=== PATIENT | male | born 1960 | race Caucasian/White ===

== ENCOUNTER 2020-03-18 22:31 | Emergency (ER) | payer SELFPAY ==
[~2020-03-18] VITALS: Ht 188 cm; Wt 88.0 kg
--- OUTSIDE RECORDS SUMMARY | 2020-03-18 22:34 | XMS ---
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 There are no care providers on record at this time. Tony has no Care Guidelines for this patient. Rishi VISIT COUNT (12 MO.) 1 DIOGENES [place] TOTAL 1 NOTE: Visits indicate total known visits. ED/UCC VISIT TRACKING (12 MO.) 03/18/2020 22:31 DIOGENES Miguel [place] TYPE: Emergency COMPLAINT: - LT HIP PAIN INPATIENT VISIT TRACKING (12 MO.) No inpatient visits to display in this time frame [email or web address]
[2020-03-18] MEDS ORDERED: CLONAZEPAM0.5 MG PO (22:49)
[2020-03-18] MEDS ORDERED: HYDROCODON-ACE1 EA10 PO (22:49)
[2020-03-18] MEDS ORDERED: PANTOPRAZOLE SO40 MG PO (22:49)
[2020-03-18] MEDS ORDERED: AMLODIPINE-BEN1 EAC3 PO (22:49)
[2020-03-18] MEDS ORDERED: ZOLPIDEM TARTRA10 MG PO (22:49)
== END 2020-03-18 23:00 | disposition left against medical advice (07) ==
LOC: ED 22:31
DX: Z53.21 Procedure and treatment not carried out due to patient leaving prior to being seen by health care provider (principal)

== ENCOUNTER 2022-01-10 09:14 | Emergency (ER) | payer OTHER ==
[~2022-01-10] VITALS: Ht 188 cm; Wt 88.0 kg
[~2022-01-10 09:14] MED LIST: AMLODIPINE-BEN1 EAC3 PO; CLONAZEPAM0.5 MG PO; HYDROCODON-ACE1 EA10 PO; PANTOPRAZOLE SO40 MG PO; ZOLPIDEM TARTRA10 MG PO
[2022-01-10] MEDS ORDERED: CEPHALEXIN500 M1 PO (11:10)
== END 2022-01-10 12:08 | disposition home or self-care (01) ==
LOC: ED 09:14
DX: S61.411A Laceration without foreign body of right hand, initial encounter (principal); J45.909 Unspecified asthma, uncomplicated; I10 Essential (primary) hypertension; K21.9 Gastro-esophageal reflux disease without esophagitis; G47.00 Insomnia, unspecified; Z88.5 Allergy status to narcotic agent; Z79.899 Other long term (current) drug therapy; W26.8XXA Contact with other sharp object(s), not elsewhere classified, initial encounter
CPT/HCPCS: 73130; 99283-25; A9270

== ENCOUNTER 2024-05-20 07:00 | Day surgery (SDC) | payer OTHER ==
[2024-05-18 08:36] VITALS: BP 124/79
[~2024-05-20] VITALS: Ht 188 cm; Wt 93.2 kg
[~2024-05-20 07:00] MED LIST changes: +CEFAZOLIN SODIUM 2 GM/20 ML SYR IV SCH; +CEPHALEXIN500 M1 PO; +IBLOOD GLUCOSE TEST STRIP 1 EA TEST VI PRN; +LACTATED RINGER'S 1,000 ML IV SCH; +LIDOCAINE HCL 1% 5 ML SDV INJ ONE; +MIDAZOLAM HCL 5 MG/5 ML VIAL IV PRN; +fentaNYL citrate 100 MCG/2 ML VIAL IV PRN
[2024-05-20 07:13] VITALS: BP 145/83
--- NOTE | 2024-05-20 07:50 | NUR ---
PRE-OP VISIT. PT APPEARED SLIGHTLY ANXIOUS, STATED DOES NOT LIKE HOSPITALS DUE TO PAST EXPERIENCES. HOUSEHOLD CHORES PROVIDED SUPPORTIVE PRESENCE, ACCESS SERVICES LIBRARIAN EDUCATION, HOSPITALITY, PRAYER. PT EXPRESSED APPRECIATION, APPEARED TO MORE RELAXED.
[2024-05-20] MEDS ORDERED: IBLOOD GLUCOSE TEST STRIP 1 EA TEST VI PRN (08:00)
[2024-05-20] MEDS ORDERED: PROCHLORPERAZINE EDISYLATE 10 MG/2 ML VIAL IV PRN (08:00)
[2024-05-20] MEDS ORDERED: fentaNYL citrate 50 MCG/ML SDV IV PRN (08:00)
[2024-05-20] MEDS ORDERED: ondansetron HCL 4 MG/2 ML VIAL IV PRN (08:00)
[2024-05-20] MEDS ORDERED: droPERidol 5 MG/2 ML VIAL IV PRN (08:00)
[2024-05-20] MEDS ORDERED: METOCLOPRAMIDE HCL 10 MG/2 ML SDV IV PRN (08:00)
[2024-05-20] MEDS ORDERED: MEPERIDINE HCL 25 MG/1 ML VIAL IV PRN (08:00)
[2024-05-20] MEDS ORDERED: NALOXONE HCL 0.4 MG SYR IV PRN (08:00)
[2024-05-20] MEDS ORDERED: LIDOCAINE HCL 2% 5 ML SDV ONE (08:19)
[2024-05-20] MEDS ORDERED: propofoL 200 MG/20 ML VIAL ONE ×3 (08:19→08:51)
--- NOTE | 2024-05-20 09:05 | NUR ---
05/20/24 0905 Snehal Wiggins 0900- PT ARRIVES TO PACU NONAROUSABLE TO STIMULI. RESP EVEN AND UNLABORED. OXYGEN SAT MID TO HIGH 90'S ON 2L VIA CO2 NC.
[2024-05-20 09:33] VITALS: BP 135/92
--- NOTE | 2024-05-20 11:00 | OR ---
[facility] [address] [place], [place] [address] Signed DATE OF OPERATION: 05/20/2024 SURGEON: Arabella Lincoln MD PREOPERATIVE DIAGNOSIS: Screening. POSTOPERATIVE DIAGNOSES: 1. 3 mm polyp at 7 cm in rectum. 2. 4 mm polyp at 15 cm in rectum. 3. 4 mm polyp in proximal right colon. 4. 5 mm polyp versus lymphoid aggregate at 85 cm in left colon. 5. Small single column internal hemorrhoid. PROCEDURE: Colonoscopy with hot biopsy. ESTIMATED BLOOD LOSS: None. INDICATIONS: Jovanna is a 64-year-old gentleman, asked to see me for followup colonoscopy. I helped him with a screening colonoscopy in 2011 at the age of 52. This was unremarkable. He always requires monitored anesthesia care because of his severe panic attacks and PTSD requiring daily clonazepam. He also has been using some hydrocodone as well. That worked out very well today. He told me he has no lower GI complaints. There is no family history of colon cancer or polyps. 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 He understands colonoscopy well. There is risk including, but not limited to gas bloating, crampy abdominal pain, bleeding, perforation requiring surgery, and missed diagnosis. He understands an adult person has to take him home afterwards. He had expressed understanding and wished to proceed. DESCRIPTION OF PROCEDURE: Jovanna was taken into our endoscopy suite and placed in the left lateral decubitus position. He was given monitored anesthesia care with propofol infusion per our nurse insurance loss adjuster. A digital rectal exam was performed and this was unremarkable. He had good sphincter tone. No external hemorrhoids. No masses. The adult colonoscope was introduced and advanced all around into the cecum under direct visualization of the camera. He needed just a little extra propofol and some abdominal compression to get the camera directly into the cecum itself. We could easily see the appendiceal orifice Electronically Signed By: ARABELLA LINCOLN MD 08/1099 PATIENT NAME: JOVANNA GREY OPERATIVE REPORT DATE OF : 64 REPORT #: [id number] PHYSICIAN: ARABELLA LINCOLN MD PCP: ERICKA FAIR PA-C REPORT IS CONFIDENTIAL AND NOT TO BE RELEASED WITHOUT AUTHORIZATION [facility] [address] [place] [address] Signed and the ileocecal valve. The scope was then slowly withdrawn. We took pictures throughout for photodocumentation. The above-mentioned polyps were easily removed with the help of hot biopsy forceps. The scope was then retroflexed in the rectum and he does have just a single internal small hemorrhoid column. After this, the gas was suctioned out and the colonoscope removed. Jovanna tolerated the procedure quite well. RECOMMENDATIONS: I will see Jovanna back in my office in 7 to 14 days to review his results. MD ERNESTO Beebe/MODE /[id number] cc: MONICA Negron MD Copies: FAIRERICKA PA-C, ANDREW L MD ~ Electronically Signed By: ARABELLA LINCOLN MD 05/20/24 1100 PATIENT NAME: JOVANNA GREY OPERATIVE REPORT DATE OF : 64 REPORT #: [id number] PHYSICIAN: ARABELLA LINCOLN MD PCP: ERICKA FAIR PA-C REPORT IS CONFIDENTIAL AND NOT TO BE RELEASED WITHOUT AUTHORIZATION
--- NOTE | 2024-05-25 15:57 | PATH ---
[facility] [address] [facility] [place] [address] Signed SPECIMEN(S): A RECTAL POLYP AT 7 CM SPECIMEN(S): B RECTAL POLYP AT 15 CM SPECIMEN(S): C PROXIMAL RIGHT COLON POLYP SPECIMEN(S): D LEFT COLON POLYP AT 85 CM SPECIMEN SOURCE: A. RECTAL POLYP AT 7 CM B. RECTAL POLYP AT 15 CM C. PROXIMAL RIGHT COLON POLYP D. LEFT COLON POLYP AT 85 CM CLINICAL HISTORY: Screening colonoscopy. FINAL PATHOLOGIC DIAGNOSIS: A. Rectal polyp at 7 cm: - Hyperplastic polyp (one fragment). B. Rectal polyp at 15 cm: - Hyperplastic polyp (one fragment). C. Proximal right colon polyp: - Tubular adenoma (two fragments). D. Left colon polyp at 85 cm: - Tubular adenoma (one fragment). JVR:eloisa MICROSCOPIC EXAMINATION: Histologic sections of all submitted blocks are examined by light microscopy. These findings, together with the gross examination, support the pathologic diagnosis. GROSS DESCRIPTION: A. The specimen, labeled and designated "Andrea, rectal polyp at 7 cm.," is received in formalin and consists of one matthews soft tissue fragment, 0.2 cm. Entirely submitted in (A1). B. The specimen, labeled and designated "Andrea, rectal polyp at 15 cm," is received in formalin and consists of one matthews soft tissue fragment, 0.2 cm. Entirely submitted in (B1). C. The specimen, labeled and designated "[place], proximal right colon polyp," is received in formalin and consists of two matthews soft tissue fragments, ranging from 0.2 cm. Entirely submitted in (C1). D. The specimen, labeled and designated "[place], descending colon polyp at 85 PATIENT NAME: JOVANNA GREY PATHOLOGY DATE OF : 64 REPORT #: [id number] PHYSICIAN: MARYReebonz PATHOLOGY PCP: ERICKA FAIR PA-C REPORT IS CONFIDENTIAL AND NOT TO BE RELEASED WITHOUT AUTHORIZATION [facility] [address] [place], [place] [address] Signed cm," is received in formalin and consists of one matthews soft tissue fragment, 0.2 cm. Entirely submitted in (D1). JS (under the direct supervision of a pathologist) The Gross Description was prepared using a voice recognition system. The report was reviewed for accuracy; however, sound-alike word errors, addition and/or deletions may occur. If there is any question about this report, please contact Client Services. ADDITIONAL NOTES: Immunohistochemical and/or in situ hybridization studies if performed in this case included appropriate positive controls that reacted as expected. This test was developed and its performance characteristics determined by [employer]. It has not been cleared or approved by the U.S. Food and Drug Administration. The FDA has determined that such clearance or approval is not necessary. This test is used for clinical purposes. It should not be regarded as investigational or for research. [employer] is certified under the Clinical Laboratory Improvement Amendments of 1988 (CLIA) as qualified to perform high complexity clinical laboratory testing. PERFORMING LABORATORY: Technical component was performed by [employer], [address] [place] [id number] (CLIA# [id number]). Professional interpretation was performed by [facility] [facility] Pathology - [facility], [address] [place] [id number] (CLIA#: [id number]). Diagnostician: Cipriano Leong MD Pathologist Electronically Signed 05/25/2024 Copies: ~ PATIENT NAME: JOVANNA GREY PATHOLOGY DATE OF : 64 REPORT #: [id number] PHYSICIAN: DANIA PATHOLOGY PCP: ERICKA FAIR PA-C REPORT IS CONFIDENTIAL AND NOT TO BE RELEASED WITHOUT AUTHORIZATION
== END 2024-05-20 09:38 | disposition home or self-care (01) ==
LOC: DS 07:00
PROVIDERS: ATTEND Colon & Rectal Surgery
PROC: 0DBP8ZX Excision of Rectum, Via Natural or Artificial Opening Endoscopic, Diagnostic (ICD-10-PCS; 2024-05-20)
PROC: 0DBF8ZX Excision of Right Large Intestine, Via Natural or Artificial Opening Endoscopic, Diagnostic (ICD-10-PCS; 2024-05-20)
PROC: 0DBG8ZX Excision of Left Large Intestine, Via Natural or Artificial Opening Endoscopic, Diagnostic (ICD-10-PCS; principal; 2024-05-20 08:15)
DX: Z12.11 Encounter for screening for malignant neoplasm of colon (principal); D12.6 Benign neoplasm of colon, unspecified; K63.5 Polyp of colon; K62.1 Rectal polyp; K64.8 Other hemorrhoids; F43.10 Post-traumatic stress disorder, unspecified; F41.0 Panic disorder [episodic paroxysmal anxiety]; J45.909 Unspecified asthma, uncomplicated; I10 Essential (primary) hypertension; K21.9 Gastro-esophageal reflux disease without esophagitis; E78.5 Hyperlipidemia, unspecified; M19.90 Unspecified osteoarthritis, unspecified site; Z79.899 Other long term (current) drug therapy; Z88.8 Allergy status to other drugs, medicaments and biological substances
CPT/HCPCS: 00811; J0690; J2001; J2704; J7121

== ENCOUNTER 2024-09-14 06:53 | Day surgery (SDC) | payer OTHER ==
[2024-09-12 15:02] VITALS: BP 153/88
[~2024-09-14] VITALS: Ht 188 cm; Wt 98.6 kg
[~2024-09-14 06:53] MED LIST changes: -CEFAZOLIN SODIUM 2 GM/20 ML SYR IV SCH; -IBLOOD GLUCOSE TEST STRIP 1 EA TEST VI PRN; -LACTATED RINGER'S 1,000 ML IV SCH; -LIDOCAINE HCL 1% 5 ML SDV INJ ONE; -MIDAZOLAM HCL 5 MG/5 ML VIAL IV PRN; -fentaNYL citrate 100 MCG/2 ML VIAL IV PRN
[2024-09-14] MEDS ORDERED: LIDOCAINE HCL 1% 5 ML SDV INJ ONE (07:00)
[2024-09-14] MEDS ORDERED: IBLOOD GLUCOSE TEST STRIP 1 EA TEST VI PRN (07:00)
[2024-09-14] MEDS ORDERED: CEFAZOLIN SODIUM 2 GM/20 ML SYR IV SCH (07:00)
[2024-09-14] MEDS ORDERED: LACTATED RINGER'S 1,000 ML IV SCH (07:00)
[2024-09-14 07:09] VITALS: BP 141/83
[2024-09-14] MEDS ORDERED: propofoL 200 MG/20 ML VIAL ONE (08:27)
[2024-09-14] MEDS ORDERED: LIDOCAINE HCL 2% 5 ML SDV ONE (08:27)
--- NOTE | 2024-09-14 08:39 | NUR ---
09/14/24 0839 Cindy Carrillo 0853-PATIENT ARRIVED TO PACU ON 2L NC RR EVEN. PATIENT REACTIVE TO VERBAL STIMULI OPENING EYES DENIES PAIN OR NAUSEA. HOB ELEVATED. IVF INFUSING. SR.
[2024-09-14 09:06] VITALS: BP 144/87
--- NOTE | 2024-09-14 10:16 | OR ---
[facility] [address] [place], [place] [address] Signed DATE OF OPERATION: 09/14/2024 SURGEON: Arabella Lincoln MD PREOPERATIVE DIAGNOSES: 1. Paraesophageal hernia. 2. Esophageal dysphagia. 3. Subxiphoid pain. POSTOPERATIVE DIAGNOSES: 1. GE junction at 40 cm. 2. Moderate sized hiatal hernia (45-40 cm). 3. Mild gastroduodenitis. PROCEDURE: Esophagogastroduodenoscopy with CLOtest and biopsies of the pyloric bulb, antrum, GE junction and distal esophagus. ESTIMATED BLOOD LOSS: None. INDICATIONS: Jovanna is a 64-year-old gentleman I have known for quite a few years. I have helped him with a couple of colonoscopies in the past. He returns on this occasion, describing his hiatal hernia back into his early 20s. He said he uses Protonix with good results. If he stops Protonix for a couple of weeks, he starts to have esophageal dysphagia. He does not seem to recognize any acid reflux symptoms up into the chest. He said he was a little worried about some pain around the area of the xiphoid process. I explained to him that is separate from the hiatal hernia. He said the grandchildren would like to wrestle with him and jump on his chest. He also likes to lift weights to stay in shape. 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 His primary care provider sent him for a barium swallow on March 17, 2024. It reveals the type 2 hiatal hernia that is a pure paraesophageal hiatal hernia. The esophagus was unremarkable. There is a little deviation at the GE junction from the fundus creating the paraesophageal hiatal hernia. He had a little bit of stasis during the test, but it cleared with additional swallows. He had some very mild tertiary contractions. He had a little bit of reflux with Valsalva. He had been asked to see me for upper endoscopy with respect to the above. In the office, I gave him a brochure on upper endoscopy. We reviewed the nature of the test. There is risk including, but not limited to gas bloating, crampy abdominal pain, bleeding, perforation requiring surgery, and missed Electronically Signed By: ARABELLA LINCOLN MD 09/14/24 1016 PATIENT NAME: JOVANNA GREY OPERATIVE REPORT DATE OF : 64 REPORT #: [id number] PHYSICIAN: ARABELLA LINCOLN MD PCP: COURTNEY FAIR PA-C REPORT IS CONFIDENTIAL AND NOT TO BE RELEASED WITHOUT AUTHORIZATION [facility] [address] [place] [address] Signed diagnosis. He also understands the need for monitored anesthesia care with propofol infusion given his need for hydrocodone and his severe PTSD and panic attacks. He has had monitored anesthesia care for his two previous colonoscopies and it worked out very well. It worked out well again today. He also has to use a little Ambien and clonazepam at home. In that regard, he did have preoperative blood work and an EKG. He understands an adult person has to take him home afterwards. He said that would be his . He had expressed understanding and wished to proceed. PROCEDURE IN DETAIL: Jovanna was taken into the endoscopy suite and placed in a supine semi-recumbent position. A bite block was utilized for the case. He was given monitored anesthesia care with propofol infusion per our nurse commercial sewing instructor. The adult gastroscope was introduced, advanced right down to the GE junction at 40 cm. It took just a minute to get through his paraesophageal hernia out in the stomach. We went down out into the duodenum. The duodenum proper was unremarkable. He had very minimal irritation of his pyloric bulb and his distal stomach. We took biopsies from the pyloric bulb and the antrum for pathologic review. An additional biopsy came out of the antrum for CLOtest. There were no ulcerations. Upon retroflexion of the scope, one can easily see his paraesophageal hernia. The scope was withdrawn up through the area of the paraesophageal hernia. It seems to measure from 45 cm back to 40 cm at the GE junction. He does have a little deviation at the GE junction. It is a little irritated, but very minimal disruption to the Z-line. There was no Carvalho's mucosa. There was no distal esophagitis. We went ahead and took a biopsy right at the GE junction and again in his distal esophagus. The middle and upper esophagus were unremarkable. After this, the gas was suctioned out. The gastroscope removed. Jovanna tolerated the procedure quite well. RECOMMENDATIONS: I will see Jovanna back in my office in 7 to 14 days to review his results. He is already aware that surgery is available for hiatal hernias. It is something he has to decide particular given the fact that he likes to lift weights to stay in shape. Arabella Lincoln MD ALB/LOPEZL /[id number] Electronically Signed By: ARABELLA LINCOLN MD 09/14/24 1016 PATIENT NAME: JOVANNA GREY OPERATIVE REPORT DATE OF : 64 REPORT #: [id number] PHYSICIAN: ARABELLA LINCOLN MD PCP: COURTNEY FAIR PA-C REPORT IS CONFIDENTIAL AND NOT TO BE RELEASED WITHOUT AUTHORIZATION [address], [place] [address] Signed cc: MD Courtney Beebe PA-C Copies: ARABELLA LINCOLN MD, CHLOE K PA-C ~ Electronically Signed By: ARABELLA LINCOLN MD 09/14/24 1016 PATIENT NAME: JOVANNA GREY OPERATIVE REPORT DATE OF : 64 REPORT #: [id number] PHYSICIAN: ARABELLA LINCOLN MD PCP: COURTNEY FAIR PA-C REPORT IS CONFIDENTIAL AND NOT TO BE RELEASED WITHOUT AUTHORIZATION
--- NOTE | 2024-09-16 10:43 | PATH ---
[facility] [address] [place], [place] [address] Signed SPECIMEN(S): A DUODENAL BULB BIOPSY SPECIMEN(S): B ANTRUM BIOPSY SPECIMEN(S): C GE JUNCTION SPECIMEN(S): D DISTAL LOWER ESOPHAGEAL BIOPSY SPECIMEN SOURCE: A. DUODENAL BULB BIOPSY B. ANTRUM BIOPSY C. GE JUNCTION D. DISTAL LOWER ESOPHAGEAL BIOPSY CLINICAL HISTORY: Hiatal hernia; GERD/gastroduodenitis FINAL PATHOLOGIC DIAGNOSIS: A. Duodenum, bulb, biopsy: - Duodenal mucosa with no significant pathologic changes B. Stomach, antrum, biopsy: - Gastric antral mucosa with no significant pathologic changes - Negative for Helicobacter pylori with HE stains C. Gastroesophageal junction, biopsy: - Squamoglandular mucosa with reactive epithelial changes; negative for intestinal metaplasia D. Esophagus, distal lower, biopsy: - Esophageal squamous mucosa with no significant pathologic changes BRP MICROSCOPIC EXAMINATION: Histologic sections of all submitted blocks are examined by light microscopy. These findings, together with the gross examination, support the pathologic diagnosis. GROSS DESCRIPTION: A. The specimen, labeled and designated "[place], duodenum bulb biopsy," is received in formalin and consists of one matthews soft tissue fragment, 0.2 cm. Entirely submitted in (A1). B. The specimen, labeled and designated "[place], antrum biopsy," is received in formalin and consists of one matthews soft tissue fragment, 0.2 cm. Entirely submitted in (B1). C. The specimen, labeled and designated "Andrea, GE junction biopsy," is received in formalin and consists of one matthews soft tissue fragment, 0.2 cm. PATIENT NAME: JOVANNA GREY PATHOLOGY DATE OF : 64 REPORT #: [id number] PHYSICIAN: DANIA UGARTE PCP: ERICKA FAIR PA-C REPORT IS CONFIDENTIAL AND NOT TO BE RELEASED WITHOUT AUTHORIZATION [facility] [address] [place], [place] [address] Signed Entirely submitted in (C1). D. The specimen, labeled and designated "Andrea, distal lower esophagus," is received in formalin and consists of one matthews soft tissue fragment, 0.2 cm. Entirely submitted in (D1). JS (under the direct supervision of a pathologist) The Gross Description was prepared using a voice recognition system. The report was reviewed for accuracy; however, sound-alike word errors, addition and/or deletions may occur. If there is any question about this report, please contact Client Services. ADDITIONAL NOTES: Immunohistochemical and/or in situ hybridization studies if performed in this case included appropriate positive controls that reacted as expected. This test was developed and its performance characteristics determined by [facility]. It has not been cleared or approved by the U.S. Food and Drug Administration. The FDA has determined that such clearance or approval is not necessary. This test is used for clinical purposes. It should not be regarded as investigational or for research. [facility] is certified under the Clinical Laboratory Improvement Amendments of 1988 (CLIA) as qualified to perform high complexity clinical laboratory testing. PERFORMING LABORATORY: Technical component was performed by [facility], [address] [place] [address] (CLIA# [id number]). Professional interpretation was performed by [employer] [facility] Pathology - [facility], [address] [place] [address] (CLIA#: [id number]). Diagnostician: Cosmo Gutierres MD Pathologist Electronically Signed 09/16/2024 Copies: ~ PATIENT NAME: JOVANNA GREY PATHOLOGY DATE OF : 64 REPORT #: [id number] PHYSICIAN: DANIA PATHOLOGY PCP: ERICKA FAIR PA-C REPORT IS CONFIDENTIAL AND NOT TO BE RELEASED WITHOUT AUTHORIZATION
== END 2024-09-14 09:15 | disposition home or self-care (01) ==
LOC: DS 06:53
PROVIDERS: ATTEND Colon & Rectal Surgery
PROC: 0DB68ZX Excision of Stomach, Via Natural or Artificial Opening Endoscopic, Diagnostic (ICD-10-PCS; 2024-09-14)
PROC: 0DB58ZX Excision of Esophagus, Via Natural or Artificial Opening Endoscopic, Diagnostic (ICD-10-PCS; 2024-09-14)
PROC: 0DB48ZX Excision of Esophagogastric Junction, Via Natural or Artificial Opening Endoscopic, Diagnostic (ICD-10-PCS; 2024-09-14)
PROC: 0DB98ZX Excision of Duodenum, Via Natural or Artificial Opening Endoscopic, Diagnostic (ICD-10-PCS; principal; 2024-09-14 08:15)
DX: K44.9 Diaphragmatic hernia without obstruction or gangrene (principal); K29.90 Gastroduodenitis, unspecified, without bleeding; K22.89 Other specified disease of esophagus; K21.9 Gastro-esophageal reflux disease without esophagitis; I10 Essential (primary) hypertension; E78.5 Hyperlipidemia, unspecified; F41.0 Panic disorder [episodic paroxysmal anxiety]; F43.10 Post-traumatic stress disorder, unspecified; J45.909 Unspecified asthma, uncomplicated; Z88.8 Allergy status to other drugs, medicaments and biological substances; Z79.899 Other long term (current) drug therapy
CPT/HCPCS: 00731; 36415; 87077; J0690; J2003; J2704; J7121